=== PATIENT | female | born 1985 | race Hispanic/Latino ===

== ENCOUNTER 2018-01-01 19:33 | Inpatient (IN) | payer MEDICAID, OTHER ==
[2018-01-01 22:12] VITALS: BMI 25.9
[2018-01-01] MEDS ORDERED: Lactated Ringer's 1,000 ML IV ONE (22:43)
[2018-01-01] MEDS ORDERED: Penicillin G 5 Million Unit Vial IVPB ONE ×2 (22:43)
[2018-01-01] MEDS ORDERED: Lactated Ringer's 1,000 ML IV SCH (22:45)
[2018-01-01 23:03] LABS: BASO # 0.1 K/uL (0.0-0.2); EOS % 0.1 % (0.0-4.0); LYMPH # 1.1 K/uL (1.0-4.3); NRBC % 0.1 % (0.0-2.0)
[2018-01-01 23:08] LABS: BASO % 0.5 % (0.0-2.0); HEMOGLOBIN 13.4 g/dL (11.0-16.0); LYMPH % 7.7 % (20.0-40.0); MEAN CELL VOLUME 87.1 fL (81.0-99.0); MEAN CORPUSCULAR HEMOGLOBIN 29.7 pg (27.0-31.0); MEAN CORPUSCULAR HGB CONC 34.1 g/dL (33.0-37.0); MEAN PLATELET VOLUME 7.7 fL (7.2-11.7); MONO # 0.7 K/uL (0.0-0.8); MONO % 4.6 % (0.0-10.0); NEUT # 12.5 K/uL (1.8-7.0); NEUT % 87.1 % (50.0-75.0); PLATELET COUNT 224 K/uL (130-400); RED CELL DISTRIBUTION WIDTH 14.5 % (11.5-14.5); WHITE BLOOD COUNT 14.4 K/uL (4.8-10.8)
[2018-01-01 23:17] LABS: SQUAMOUS EPITHIAL 2 /hpf (0-5); URINE BILIRUBIN NEGATIVE (NEGATIVE); URINE CLARITY Hazy (Clear); URINE COLOR Yellow (YELLOW); URINE GLUCOSE (UA) 1+ mg/dL (Normal); URINE LEUKOCYTE ESTERASE 1+ Leu/uL (Negative); URINE PROTEIN 1+ mg/dL (NEGATIVE); URINE UROBILINOGEN NORMAL mg/dL (0.2-1.0)
[2018-01-01 23:18] LABS: URINE BACTERIA OCC (<OCC); URINE BLOOD 1+ (NEGATIVE)
[2018-01-01 23:24] LABS: BLOOD UREA NITROGEN 8 mg/dL (7-17); CALCIUM 9.9 mg/dl (8.6-10.4); GFR NON-AFRICAN AMERICAN > 60
[2018-01-01 23:25] LABS: ALB/GLOB RATIO 1.2 (1.0-2.1); ALT/SGPT 13 U/L (9-52); AST/SGOT 43 U/L (14-36)
[2018-01-01 23:59] LABS: BANDS 1 % (0-2); LYMPHOCYTE 5 % (20-40); MONOCYTE 4 % (0-10); NEUTROPHIL 90 % (50-75); TOTAL CELLS COUNTED 100
[2018-01-02 00:01] LABS: PLATELET ESTIMATE NORMAL (NORMAL)
[2018-01-02] MEDS ORDERED: Bupivacaine HCl/FentaNYL Cit 100 ML EPI ONE ×2 (00:01→00:03)
[2018-01-02] MEDS ORDERED: Lidocaine Hydrochloride 5 ML INJ ONE (00:24)
[2018-01-02] MEDS ORDERED: Benzocaine/Menthol 20%-0.5% Topical Spray (60 ml) TOP PRN (01:39)
[2018-01-02] MEDS ORDERED: Oxycodone/Acetaminophen 5/325 mg Tab PO PRN ×2 (01:39)
--- NOTE | 2018-01-02 01:39 | OBADHP ---
Datetime: 01/02/2018 01:37 FHR - Baseline A Provider: 130 Contraction Comments Provider: q1-3 Vital Signs Provider: Reviewed; Within Normal Limits NICHD Variability Prov Fetus A: Moderate 6-25bpm NICHD Accel Fetus A IP Provider: 15X15 FHR Category Provider Fetus A: Category I Dilatation, Provider: 10 Effacement, Provider: 100 Station, Provider: 0 Datetime: 01/02/2018 01:35 Admit Comment, IP Provider: at 39+weks ca,e with c/o ctxs started last nigh, irrg q 1-2 min, no i vb lof+fm. obhx primi pmh de med pnv ll nkda psh de stefania de e /-1 a/p at 39+weeks in active labor admit to l_d npo/ivf labs gbs prophy;axsis anticipate Pelvic Type - PN: Adequate Extremities - PN: Normal Abdomen - PN: Normal Back - PN: Normal Breast - PN: Normal Lungs - PN: Normal Heart - PN: Normal Thyroid - PN: Normal Neurologic - PN: Normal HEENT - PN: Normal General - PN: Normal IP Hx Assessment: The History has been Reviewed and is Current IP Chief Complaint: Uterine contractions Genitourinary Exam: Normal DTRs - PN: Normal EGA AdmitDate IP: 39.4 IP Adm Impression: Term, intrauterine ; Active labor IP Admit Plan: Admit to unit; Initiate labor protocol
--- NOTE | 2018-01-02 01:39 | OBPN ---
Datetime: 01/02/2018 01:37 IP Progress Impression: Normal progression of labor IP Procedures: Sterile Vag Exam Contraction Comments Provider: q1-3 FHR - Baseline A Provider: 130 IP Progress Note Comment: pt was examind at bed side ve fd/1`00/0 will start pushing anticipate Vital Signs Provider: Reviewed; Within Normal Limits NICHD Accel Fetus A IP Provider: 15X15 FHR Category Provider Fetus A: Category I NICHD Variability Prov Fetus A: Moderate 6-25bpm Dilatation, Provider: 10 Effacement, Provider: 100 Station, Provider: 0
[2018-01-02] MEDS ORDERED: Lidocaine 2% MPF (5 ml) Inj ONE (02:54)
--- NOTE | 2018-01-02 07:50 | OBHP ---
Datetime: 01/02/2018 01:37 FHR - Baseline A Provider: 130 Contraction Comments Provider: q1-3 Vital Signs Provider: Reviewed; Within Normal Limits NICHD Variability Prov Fetus A: Moderate 6-25bpm NICHD Accel Fetus A IP Provider: 15X15 FHR Category Provider Fetus A: Category I Dilatation, Provider: 10 Effacement, Provider: 100 Station, Provider: 0 Datetime: 01/02/2018 01:35 IP Adm Impression: Term, intrauterine ; Active labor IP Admit Plan: Admit to unit; Initiate labor protocol Admit Comment, IP Provider: at 39+weks ca,e with c/o ctxs started last nigh, irrg q 1-2 min, no i vb lof+fm. obhx primi pmh de med pnv ll nkda psh de stefania de e /-1 a/p at 39+weeks in active labor admit to l_d npo/ivf labs gbs prophy;axsis anticipate Pelvic Type - PN: Adequate Extremities - PN: Normal Abdomen - PN: Normal Back - PN: Normal Breast - PN: Normal Lungs - PN: Normal Heart - PN: Normal Thyroid - PN: Normal Neurologic - PN: Normal HEENT - PN: Normal General - PN: Normal IP Hx Assessment: The History has been Reviewed and is Current EGA AdmitDate IP: 39.4 IP Chief Complaint: Uterine contractions Genitourinary Exam: Normal DTRs - PN: Normal
[2018-01-02] MEDS ORDERED: Tdap Vaccine 0.5 ml Vial (10-64 yrs) IM ONE ×2 (10:40→17:30)
--- NOTE | 2018-01-03 08:18 | CP.PCM.PN ---
Subjective - Date & Time of Evaluation Date of Evaluation: 01/03/18 Time of Evaluation: 07:00 - Subjective Subjective: Steven Laureano, PGY1 [employer] Progress Note for Dr. Stephenson Patient was seen and evaluated at bedside this morning. Patient was awake, alert, and comfortable in bed. She is s/p on 01/02 (). Patient's vital signs are stable. No adverse overnight events. Patient is ambulating in the room. Denies cp, sob, n/v/d, and leg swelling/pain. Patient said after her delivery, she did notice more vaginal bleeding but it has resolved. Patient is passing gas. She is having bowel movements. No urinary complaints; denies dysuria, increased urinary frequency, and urgency. A full 12 point ROS was conducted and unremarkable except as stated above. Objective - Vital Signs/Intake and Output Vital Signs (last 24 hours): Temp Pulse Resp BP Pulse Ox 98.3 F 72 20 104/73 99 01/03/18 00:01 01/03/18 00:01 01/03/18 00:01 01/03/18 00:01 01/03/18 00:01 - Medications Medications: Current Medications Benzocaine/Menthol (Dermoplast 20%-0.5%) 0 ml TOP Q6 PRN PRN Reason: Perineal Discomfort Last Admin: 01/02/18 05:30 Dose: 60 ml Docusate Sodium (Colace) 100 mg PO BID [facility] Last Admin: 01/02/18 17:27 Dose: 100 mg Lactated Ringer's (Lactated Ringer's) 1,000 mls @ 125 mls/hr IV .Q8H [facility] Last Admin: 01/01/18 23:45 Dose: 125 mls/hr Ibuprofen (Motrin Tab) 600 mg PO Q6 PRN PRN Reason: Pain, Mild (1-3) Last Admin: 01/03/18 05:21 Dose: 600 mg Oxycodone/Acetaminophen (Percocet 5/325 Mg Tab) 1 tab PO Q4H PRN PRN Reason: Pain, moderate (4-7) Stop: 01/05/18 01:40 Last Admin: 01/03/18 03:16 Dose: 1 tab Oxycodone/Acetaminophen (Percocet 5/325 Mg Tab) 2 tab PO Q4H PRN PRN Reason: Pain, severe (8-10) Stop: 01/05/18 01:40 - Labs Labs: 01/01/18 23:04 01/01/18 23:09 - Constitutional Appears: Well, No Acute Distress - Head Exam Head Exam: ATRAUMATIC, NORMAL INSPECTION, NORMOCEPHALIC - Eye Exam Eye Exam: EOMI, Normal appearance, PERRL Pupil Exam: NORMAL ACCOMODATION, PERRL - ENT Exam ENT Exam: Mucous Membranes Moist, Normal Exam - Neck Exam Neck Exam: Full ROM, Normal Inspection. absent: Lymphadenopathy - Respiratory Exam Respiratory Exam: Clear to Ausculation Bilateral, NORMAL BREATHING PATTERN. absent: Chest Wall Tenderness, Rales, Rhonchi, Wheezes - Cardiovascular Exam Cardiovascular Exam: REGULAR RHYTHM, +S1, +S2. absent: Murmur - GI/Abdominal Exam GI & Abdominal Exam: Soft, Normal Bowel Sounds. absent: Tenderness Additional comments: Linea nigra appreciated on exam. - Extremities Exam Extremities Exam: Full ROM, Normal Capillary Refill, Normal Inspection. absent: Calf Tenderness, Joint Swelling, Pedal Edema Additional comments: No pitting edema of the bilateral lower extremities. - Neurological Exam Neurological Exam: Alert, Awake, Normal Gait, Oriented x3 Neuro motor strength exam: Left Upper Extremity: 5, Right Upper Extremity: 5, Left Lower Extremity: 5, Right Lower Extremity: 5 - Psychiatric Exam Psychiatric exam: Normal Affect, Normal Mood. absent: Depressed - Skin Skin Exam: Dry, Intact, Normal Color, Warm Assessment and Plan - Assessment and Plan (Free Text) Assessment: Patient is a 32 y/o F s/p on 01/02. Patient is doing well on the unit. Continuing to monitor patient. Plan: s/p on 01/02 - No complications - Patient is ambulating, passing gas and has normal bowel movements - Tolerating regular diet - Continue to monitor today; patient is possibly safe for discharge tomorrow - c/w colace - c/w ibuprofen and percocet q4 prn for pain control - LR 125 mls/hr - repeat routine labs - Vital signs stable - ( at 39+ weeks gestation) Case was discussed and reviewed with Dr. Stephenson.
[2018-01-03 08:29] LABS: BASO % 0.3 % (0.0-2.0); EOS # 0.1 K/uL (0.0-0.7); EOS % 0.5 % (0.0-4.0); LYMPH # 1.7 K/uL (1.0-4.3); LYMPH % 12.9 % (20.0-40.0); MEAN CELL VOLUME 87.3 fL (81.0-99.0); MEAN CORPUSCULAR HEMOGLOBIN 29.4 pg (27.0-31.0); MEAN CORPUSCULAR HGB CONC 33.7 g/dL (33.0-37.0); MEAN PLATELET VOLUME 7.6 fL (7.2-11.7); MONO # 0.8 K/uL (0.0-0.8); MONO % 5.9 % (0.0-10.0); NEUT # 10.6 K/uL (1.8-7.0); NEUT % 80.4 % (50.0-75.0); RBC 3.38 Mil/uL (3.80-5.20); RED CELL DISTRIBUTION WIDTH 14.8 % (11.5-14.5); WHITE BLOOD COUNT 13.2 K/uL (4.8-10.8)
[2018-01-03 08:42] LABS: HEMOGLOBIN 9.9 g/dL (11.0-16.0)
--- NOTE | 2018-01-04 06:39 | OBDCSUM ---
Datetime: 01/04/2018 06:38 Discharged to, Provider: Home Follow up at, Provider: 4we Discharge Diagnosis, Provider: Term Delivered Follow up in weeks, Provider: dr vishnu Pabon Activity Restrictions: No exercising; No lifting; No driving; Minimize walking; Minimize stair -climbing; No sexual activity; Nothing in vagina - [place], tampons, douche
--- NOTE | 2018-01-04 06:39 | OBPPN ---
Datetime: 01/04/2018 06:37 PP Pain Prov: Within normal limits PP Nausea Prov: Denies PP Flatus Prov: Yes PP Lochia Prov: Normal PP Extremities Prov: Normal PP Impression Prov: Normal progression PP Plan Prov: Discharge PP Progress Note Prov: pt was seen at bbed side, pain under control,no n/.v, tolerating deit, voidin g,min ochia, flatu+ ppd#2 dc home motrin pren no sex f/u in 6wek Vital Signs Provider PP: Reviewed; Within Normal Limits
[2018-01-04 08:16] LABS: BASO # 0.1 K/uL (0.0-0.2); BASO % 0.8 % (0.0-2.0); EOS # 0.1 K/uL (0.0-0.7); HEMOGLOBIN 10.5 g/dL (11.0-16.0); LYMPH # 1.7 K/uL (1.0-4.3); MEAN CELL VOLUME 88.4 fL (81.0-99.0); MEAN CORPUSCULAR HEMOGLOBIN 29.9 pg (27.0-31.0); MEAN CORPUSCULAR HGB CONC 33.8 g/dL (33.0-37.0); MEAN PLATELET VOLUME 7.6 fL (7.2-11.7); MONO # 0.5 K/uL (0.0-0.8); MONO % 4.9 % (0.0-10.0); NEUT # 8.3 K/uL (1.8-7.0); NEUT % 77.3 % (50.0-75.0); NRBC % 0.1 % (0.0-2.0); RBC 3.52 Mil/uL (3.80-5.20); RED CELL DISTRIBUTION WIDTH 14.7 % (11.5-14.5); WHITE BLOOD COUNT 10.7 K/uL (4.8-10.8)
[2018-01-04 09:19] VITALS: RESP 18
[2018-01-04 16:18] VITALS: BP 113/70; PULSE 76; TEMP 97.5; O2SAT 98
== END 2018-01-04 18:00 | disposition home or self-care (01) | DRG 373 ==
LOC: C.EROB 19:33 → C.4D 22:56 → C.4M 01-02 04:55
PROVIDERS: ADMIT Obstetrics & Gynecology; ATTEND Obstetrics & Gynecology
PROC: 10E0XZZ Delivery of Products of Conception, External Approach (ICD-10-PCS; principal; 2018-01-02)
PROC: 0W8NXZZ Division of Female Perineum, External Approach (ICD-10-PCS; 2018-01-02)
DX: O99.824 Streptococcus B carrier state complicating childbirth (principal); Z3A.39 39 weeks gestation of pregnancy; Z37.0 Single live birth